=== PATIENT | female | born 1960 | race Two or more races ===

== ENCOUNTER 2017-11-13 06:40 | Emergency (ER) | payer OTHER ==
[~2017-11-13] VITALS: Ht 167.6 cm; Wt 69.9 kg
[~2017-11-13 06:40] MED LIST: ACETAMINOPHEN500 M1 PO; AMLODIPINE BESYL5 MG PO; ANASTROZOLE1 MG; INDAPAMIDE2.5 MG; JANUMET XR 1001 EACH; LISINOPRIL10 MG PO; LOTREL 5-20 MG1 CAP; METFORMIN HCL500 M1; PERCOCET 5-3251 EACH PO; SYNTHROID125 MCG; TOPROL XL100 M1 PO; TOPROL XL100 MG; TRICON CAPSULE1 EACH
[2017-11-13] MEDS ORDERED: SANDOSTATI100 MCG/1 (06:47)
[2017-11-13] MEDS ORDERED: SANDOSTATIN LAR20 MG (06:47)
== END 2017-11-13 11:35 | disposition home or self-care (01) ==
LOC: ER 06:40
DX: K29.70 Gastritis, unspecified, without bleeding (principal)

== ENCOUNTER 2020-07-30 09:25 | Emergency (ER) | payer OTHER ==
[~2020-07-30] VITALS: Ht 167.6 cm; Wt 69.9 kg
[~2020-07-30 09:25] MED LIST changes: +SANDOSTATI100 MCG/1; +SANDOSTATIN LAR20 MG
[2020-07-30] MEDS ORDERED: FORTAMET1000 MG PO (09:38)
[2020-07-30] MEDS ORDERED: TRICOR145 MG PO (09:38)
[2020-07-30] MEDS ORDERED: SYNTHROID112 MCG PO (09:38)
[2020-07-30] MEDS ORDERED: GLYXAMBI 25 MG1 EACH PO (09:38)
[2020-07-30] MEDS ORDERED: DERMACINRX5000 UNIT PO (09:39)
[2020-07-30] MEDS ORDERED: JANUMET 50-1,01 EACH PO (09:39)
== END 2020-07-30 17:44 | disposition home or self-care (01) ==
LOC: ER 09:25 → CPU-OBS 10:41 → ER 17:44
DX: R07.89 Other chest pain (principal); I16.0 Hypertensive urgency; I10 Essential (primary) hypertension
CPT/HCPCS: G0378; G0379; 93005

== ENCOUNTER 2023-06-11 12:42 | Emergency (ER) | payer OTHER ==
[~2023-06-11] VITALS: Ht 162.6 cm; Wt 66.2 kg
[~2023-06-11 12:42] MED LIST changes: +DERMACINRX5000 UNIT PO; +FORTAMET1000 MG PO; +GLYXAMBI 25 MG1 EACH PO; +JANUMET 50-1,01 EACH PO; +SYNTHROID112 MCG PO; +TRICOR145 MG PO
[2023-06-11] MEDS ORDERED: TRIJARDY XR 121 EACH PO (13:08)
[2023-06-11] MEDS ORDERED: FAMOTIDINE/PF 20 MG/2 ML VIAL IV PUSH STA (17:06)
[2023-06-11 18:07] LABS: HEMATOCRIT 42.3 % (36.0-45.00); HEMOGLOBIN 13.8 g/dL (12.0-15.00); MEAN CELL VOLUME 82.3 fL (80.00-100.00); MEAN CORPUSCULAR HEMOGLOBIN 26.9 pg (27.00-32.0); MEAN CORPUSCULAR HGB CONC 32.7 g/dl (32.0-36.0); PLATELET COUNT 296 K/uL (150-450); RED BLOOD COUNT 5.14 M/uL (4.00-6.00); RED CELL DISTRIBUTION WIDTH 15.5 % (11.5-14.5)
[2023-06-11 18:20] LABS: CALCIUM 9.9 mg/dL (8.5-10.1); CREATININE SERUM 0.72 mg/dL (0.55-1.02); GFR 82.08; POTASSIUM 3.53 mEq/L (3.5-5.1)
== END 2023-06-11 20:36 | disposition home or self-care (01) ==
LOC: ER 12:42
PROVIDERS: General Practice
DX: K29.70 Gastritis, unspecified, without bleeding (principal); Z91.041 Radiographic dye allergy status; I10 Essential (primary) hypertension; E11.9 Type 2 diabetes mellitus without complications; Z79.84 Long term (current) use of oral hypoglycemic drugs
CPT/HCPCS: 36415; 93005; 96365; 99282; J3490

== ENCOUNTER 2024-07-26 07:33 | Emergency (ER) | payer OTHER ==
[~2024-07-26] VITALS: Ht 162.6 cm; Wt 61.7 kg
[~2024-07-26 07:33] MED LIST changes: +TRIJARDY XR 121 EACH PO
[2024-07-26] MEDS ORDERED: PRAVASTATIN SOD20 MG PO (07:57)
[2024-07-26] MEDS ORDERED: LOTREL 5-20 MG1 CAP PO (07:57)
[2024-07-26] MEDS ORDERED: FAMOTIDINE/PF 20 MG in 0.9 % SODIUM CHLORIDE 8 ML IV PUSH STA (08:17)
[2024-07-26] MEDS ORDERED: FAMOTIDINE/PF 20 MG/2 ML VIAL ONE (08:18)
[2024-07-26] MEDS ORDERED: BARIUM SULFATE 450 ML ORAL.SUSP PO ONE (08:18)
[2024-07-26 08:39] LABS: BASO % 0.4 % (0.1-1.2); EOS # 0.02 (0.04-0.54); EOS % 0.3 % (0.7-7.0); HEMOGLOBIN 13.9 g/dL (11.2-15.7); LYMPH # 1.96 (1.18-3.74); LYMPH % 28.4 % (19.3-53.1); MEAN CORPUSCULAR HEMOGLOBIN 26.8 pg (25.6-32.2); MONO # 0.55 (0.24-0.82); NEUT # 4.33 (1.56-6.13); NEUT % 62.8 % (34.0-71.1); PLATELET COUNT 290 K/uL (163-369); RED BLOOD COUNT 5.18 M/uL (3.93-5.22); RED CELL DISTRIBUTION WIDTH 14.2 % (11.6-14.4)
[2024-07-26 09:08] LABS: CALCIUM 9.6 mg/dL (8.5-10.1); CREATININE SERUM 0.74 mg/dL (0.55-1.02); GFR 79.26; POTASSIUM 3.47 mEq/L (3.5-5.1)
[2024-07-26 10:03] LABS: URINE APPEARANCE Clear; URINE BILIRRUBIN Negative (NEGATIVE); URINE BLOOD Trace; URINE COLOR Yellow; URINE KETONE 15 (NEGATIVE); URINE LEUKOCYTE Negative; URINE NITRATE Negative; URINE PROTEIN Negative (NEGATIVE); URINE UROBILINOGEN 0.2 E.U./dl
[2024-07-26 10:09] LABS: URINE EPITHELIAL CELLS 9.7 uL (0.0-38.8); URINE RBC 6.4 uL (0.0-20.8); URINE WBC 10.9 uL (0.0-23.2)
[2024-07-26 10:24] LABS: URINE CAST 0.73 uL (0.0-1.40); URINE GLUCOSE >=1000 MG/DL (NEGATIVE)
== END 2024-07-26 13:28 | disposition home or self-care (01) ==
LOC: ER 07:43
PROVIDERS: Emergency Medicine
DX: K29.70 Gastritis, unspecified, without bleeding (principal); R10.9 Unspecified abdominal pain; I10 Essential (primary) hypertension; E11.9 Type 2 diabetes mellitus without complications; Z79.84 Long term (current) use of oral hypoglycemic drugs; Z91.041 Radiographic dye allergy status
CPT/HCPCS: 36415; 74177; Q9965

== ENCOUNTER 2024-08-26 06:29 | Emergency (ER) | payer OTHER ==
[~2024-08-26] VITALS: Ht 162.6 cm; Wt 61.2 kg
[~2024-08-26 06:29] MED LIST changes: +LOTREL 5-20 MG1 CAP PO; +PRAVASTATIN SOD20 MG PO
[2024-08-26] MEDS ORDERED: PANTOPRAZOLE SO20 MG PO (06:39)
== END 2024-08-26 08:37 | disposition home or self-care (01) ==
LOC: ER 07:02
DX: I10 Essential (primary) hypertension (principal); Z91.041 Radiographic dye allergy status; E03.8 Other specified hypothyroidism; I99.8 Other disorder of circulatory system